=== PATIENT | male | born 1995 | race African-American/Black ===

== ENCOUNTER 2020-02-07 13:15 | Emergency (ER) | payer BC, MEDICAID ==
[~2020-02-07] VITALS: Ht 177.8 cm; Wt 108.0 kg
[2020-02-07 13:28] VITALS: BP 170/88
== END 2020-02-07 14:47 | disposition home or self-care (01) ==
LOC: ER 13:15
DX: J02.9 Acute pharyngitis, unspecified (principal)
CPT/HCPCS: 87635; 87804; 99283

== ENCOUNTER 2022-12-28 03:18 | Emergency (ER) | payer MEDICAID ==
[~2022-12-28] VITALS: Ht 185.4 cm; Wt 158.0 kg
[2022-12-28 03:22] VITALS: O2SAT 100
[2022-12-28 04:15] LABS: HEMOGLOBIN. 15.8 g/dL (14.0-18.0); MEAN CORPUSCULAR HEMOGLOBIN 25.8 pg (28.0-32.0); MEAN CORPUSCULAR HGB CONC 32.9 g/dL (31.0-37.0); MEAN CORPUSCULAR VOLUME 78.3 fL (80.0-94.0); MEAN PLATELET VOLUME 8.5 fl (7.4-10.4); PLATELET 234 x1000/uL (130-400); RED BLOOD CELL COUNT 6.13 mill/uL (4.7-6.1); RED CELL DISTRIBUTION WIDTH 14.2 % (11.6-14.6)
[2022-12-28 04:19] LABS: DIFFERENTIAL COMMENT 1
[2022-12-28 04:25] LABS: CHLORIDE 106 mEq/L (98-107); INDEX HEMOLYSI 1 (1-3); INDEX ICTERIC 1 (1-4); INDEX LIPEMIC 1 (1-3); POTASSIUM 3.5 mEq/L (3.5-5.1); SODIUM 138 mEq/L (136-145)
[2022-12-28 04:34] LABS: ALANINE AMINOTRANSFERASE 163 IU/L (13-61); ALBUMIN 3.8 g/dL (3.4-5.0); ASPARTATE AMINOTRANSFERASE 78 IU/L (15-37); CALCIUM 8.3 mg/dL (8.5-10.1); CARBON DIOXIDE 27 mEq/L (21-32); CREATININE 0.8 mg/dL (0.6-1.3); GLUCOSE 147 mg/dL (70-105); PROTEIN TOTAL 7.7 g/dL (6.0-8.3); UREA NITROGEN BLOOD 16 mg/dL (7-21)
[2022-12-28] MEDS ORDERED: SODIUM CHLORIDE 0.9% 1,000 ML IV ONE (05:15)
[2022-12-28] MEDS ORDERED: ONDANSETRON HCL 4MG/2ML INJ IV ONE (05:15)
[2022-12-28] MEDS ORDERED: ACETAMINOPHEN 325MG TABLET PO ONE (05:45)
[2022-12-28 05:49] LABS: PLATELET ESTIMATE NORMAL
[2022-12-28] MEDS ORDERED: KETOROLAC 30MG/ML VIAL IV ONE (07:00)
[2022-12-28] MEDS ORDERED: ONDA4TAB11 PO (07:28)
[2022-12-28] MEDS ORDERED: CIPR500T5 MT (07:28)
[2022-12-28 07:48] VITALS: BP 127/74; PULSE 100; RESP 24; TEMP 99.5
== END 2022-12-28 07:57 | disposition home or self-care (01) ==
LOC: ER 03:18
DX: K52.9 Noninfective gastroenteritis and colitis, unspecified (principal); J45.909 Unspecified asthma, uncomplicated
CPT/HCPCS: 80053; 83690; 85025; 36415; 93005; 96361; 96374; 99285; J2405; J7030; Z7610 ×3